=== PATIENT | male | born 1975 | race Caucasian/White ===

== ENCOUNTER 2017-06-29 22:20 | Emergency (ER) | payer SELFPAY ==
[2017-06-29] MEDS ORDERED: NA CHLORIDE 0.9% 1,000 ML ONE (22:34)
[2017-06-29] MEDS ORDERED: MAGNE/ALUM HYDROXD 30 ML UCUP ONE (22:34)
[2017-06-29] MEDS ORDERED: LIDOCAINE VISCOUS 2% SOLN 15 ML UDC ONE (22:34)
[2017-06-29] MEDS ORDERED: FAMOTIDINE 20 MG/2 ML VIAL IV ONE (22:34)
[2017-06-29 22:58] LABS: Absolute Lymphocytes (CBC) 2.9 K/uL (0.7-4.9); Absolute Monocytes 0.4 K/uL (0.1-1.3); Absolute Neutrophil 1.7 K/uL (1.8-8.0); Basophils % 0.6 % (0-1.3); Eosinophils % 6.5 % (0-4.4); Hematocrit 42.3 % (39.6-49.0); Lymphocytes % 54.1 % (15.3-44.8); MCH 32.1 pg (27.0-35.0); MCV 92.6 fL (80-100); MPV 7.5 fL (7.6-11.3); RBC Red Blood Cell Count 4.57 M/uL (4.33-5.43)
[2017-06-29 23:01] LABS: Protime INR 1.05
[2017-06-29 23:15] LABS: Glucose Level 81 mg/dL (65-120)
[2017-06-29 23:22] LABS: ALT/SGPT 39 IU/L (10-60); AST/SGOT 65 IU/L (10-42); Albumin 4.1 g/dL (3.2-5.5); Alkaline Phosphatase 85 IU/L (42-121); Bicarbonate 24 mEq/L (21-31); Bilirubin Direct 0.3 mg/dL (0-0.2); Bilirubin Total 1.4 mg/dL (0.3-1.2); Protein, Total 7.1 g/dL (6.0-8.3); Sodium Level 136 mEq/L (135-145)
[2017-06-29 23:23] LABS: BUN Blood Urea Nitrogen < 5 mg/dL (6-20); Magnesium 1.5 mg/dL (1.8-2.5)
[2017-06-29] MEDS ORDERED: ONDANSETRON 4 MG/2 ML VIAL ONE (23:46)
[2017-06-29] MEDS ORDERED: MAGNESIUM OXIDE 400 MG TAB ONE (23:46)
[2017-06-29] MEDS ORDERED: POTASSIUM 25 MEQ EFFERV TAB ONE (23:50)
--- NOTE | 2017-06-29 23:52 | ER ---
Nurse's Notes [facility] Name: Acosta Jung Age: 42 yrs Sex: Male : 1975 Arrival Date: 06/29/2017 Time: 22:21 Bed 24 Private MD: Diagnosis: Pain localized to upper abdomen Presentation: 06/29 22:25 Presenting complaint: Patient states: Pt. arrived from home by EMS, c/o CP "heartburn" rk2 type feeling. Pt. admits to ETOH tonight. Hx of heartburn. Pt. is a poor historian unable to supply much information regarding onset. Transition of care: patient was not received from another setting of care. Onset of symptoms was June 29, 2017. Care prior to arrival: Medication(s) given: zofran 4 mg, IV initiated. 20 GA, in the right antecubital area. 22:25 Method Of Arrival: EMS: [facility] rk2 22:25 Acuity: MARION 3 rk2 Triage Assessment: 22:25 General: Appears in no apparent distress. slender, unkempt, Behavior is calm, rk2 cooperative. 22:25 Pain: Complains of pain in chest. Neuro: Level of Consciousness is awake, obeys rk2 commands, Oriented to person, place, situation. Cardiovascular: Rhythm is sinus rhythm. Respiratory: Airway is patent Respiratory effort is even, unlabored, Respiratory pattern is regular, symmetrical. GI: Reports nausea. Derm: Skin is pink, warm \\T\\ dry. Musculoskeletal:. Historical: - Allergies: 22:29 No Known Allergies; rk2 - PMHx: 22:29 heartburn; rk2 - Immunization history:: Pneumococcal vaccine is not up to date, Flu vaccine is not up to date. - Social history:: Patient uses alcohol, Patient/guardian denies using street drugs, IV drugs, The patient lives with family, Smoking status: Patient uses tobacco products. Screenin:25 Abuse screen: Denies threats or abuse. rk2 22:25 Nutritional screening: No deficits noted. Tuberculosis screening: No symptoms or risk rk2 factors identified. Fall Risk IV access (20 points). Assessment: 06/30 00:00 Reassessment: Pt. resting in room \\T\\ this time... appears to be in no obvious distress. rk2 No needs voiced. Iv fluids infusing. 00:48 Reassessment: Reviewed DC instructions with pt... Pt. awaiting ride \\T\\ this time. rk2 03:00 Reassessment: pt appears to be sleeping, awaiting ride home. bb 05:40 Reassessment: Patient is alert, oriented x 3, equal unlabored respirations, skin bb warm/dry/pink. pt calling for ride home, ambulated with steady gait to exit. Vital Signs: 06/29 22:29 BP 113 / 88; Pulse 96; Resp 16; Temp 98.7; Pulse Ox 98% on R/A; rk2 23:51 BP 124 / 78; Pulse 89; Resp 17; Pulse Ox 98% on R/A; rk2 06/30 05:41 BP 129 / 81; Pulse 74; Resp 20 S; Temp 98.2(O); Pulse Ox 96% on R/A; Pain 0/10; bb ED Course: 06/29 22:21 Patient arrived in ED. rg2 22:25 Katherin Maldonado, RN is Primary Nurse. rk2 22:25 Patient has correct armband on for positive identification. Bed in low position. Call rk2 light in reach. Side rails up X2. radiation monitor on. Pulse ox on. 22:25 Arm band placed on. rk2 22:28 Triage completed. rk2 22:29 Mika Bain MD is Attending Physician. ma2 06/30 00:50 No provider procedures requiring assistance completed. rk2 05:34 IV discontinued, intact, bleeding controlled, No redness/swelling at site. Pressure bb dressing applied. Administered Medications: 06/29 22:51 Drug: NS 0.9% 1000 ml Route: IV; Rate: 1 bolus; Site: right antecubital; rk2 06/30 00:15 Follow up: Response: No adverse reaction; IV Status: Completed infusion rk2 06/29 22:51 Drug: Pepcid 20 mg Route: IVP; Site: right antecubital; rk2 06/30 00:47 Follow up: Response: No adverse reaction 2 06/29 22:51 Drug: GI Cocktail without - (Maalox Suspension 30 ml, Lidocaine Liquid 2 % 15 rk2 ml) Route: PO; 06/30 00:47 Follow up: Response: No adverse reaction; Pain is decreased rk2 06/29 23:54 Drug: Zofran 4 mg Route: IVP; Site: right antecubital; rk2 06/30 00:46 Follow up: Response: No adverse reaction 2 06/29 23:55 CANCELLED (med changed by provider): Potassium Chloride 40 mEq PO once rk2 23:55 Drug: Magnesium Oxide 400 mg Route: PO; rk2 06/30 00:46 Follow up: Response: No adverse reaction 2 06/29 23:58 Drug: Potassium Effervescent Tablet 50 mEq Route: PO; rk2 06/30 00:46 Follow up: Response: No adverse reaction 2 06/29 23:59 CANCELLED (Duplicate Order): Potassium Effervescent Tablet 25 mEq PO once; dissolve in rk2 4 ounces of water or juice Outcome: 23:51 Discharge ordered by . jewel 06/30 00:50 Discharged to home rk2 Condition: improved Discharge instructions given to patient, Prescriptions given X 1. 05:41 Patient left the ED. bb Signatures: Saida Purcell 2 Melissa He RN RN bb Mika Bain MD MD ma2 Kidder, Rhonda, RN RN rk2
--- NOTE | 2017-06-29 23:52 | EDPHYS ---
Physician Documentation [facility] Name: Acosta Jung Age: 42 yrs Sex: Male : 1975 Arrival Date: 06/29/2017 Time: 22:21 Bed 24 Private MD: ED Physician Mika Bain HPI: 06/29 22:52 This 42 yrs old Male presents to ER via EMS with complaints of epigas. ma2 22:52 This 42 yrs old Male presents to ER via EMS with complaints of epigastric abd pain. ma2 22:52 The patient presents with abdominal pain in the epigastric area. Onset: The ma2 symptoms/episode began/occurred suddenly, gradually, 1 hour(s) ago. The symptoms do not radiate. Associated signs and symptoms: Pertinent positives: nausea and vomiting. Associated signs and symptoms: Pertinent positives: Pertinent negatives: nausea and vomiting, vomiting, vomiting blood. Severity of pain: At its worst the pain was mild moderate in the emergency department the pain is unchanged. The patient has experienced similar episodes in the past. patient was drining alcohol heavily started to have epigastric pain x 1 hour . Historical: - Allergies: 22:29 No Known Allergies; rk2 - PMHx: 22:29 heartburn; rk2 - Immunization history:: Pneumococcal vaccine is not up to date, Flu vaccine is not up to date. - Social history:: Patient uses alcohol, Patient/guardian denies using street drugs, IV drugs, The patient lives with family, Smoking status: Patient uses tobacco products. ROS: 22:52 Cardiovascular: Negative for chest pain, palpitations, and edema, Respiratory: Negative ma2 for shortness of breath, cough, wheezing, and pleuritic chest pain, : Negative for injury, bleeding, discharge, and swelling, MS/Extremity: Negative for injury and deformity. 22:52 All other systems are negative. 22:52 Unable to obtain ROS due to intoxicated with alcohol. Exam: 22:52 ENT: Nares patent. No nasal discharge, no septal abnormalities noted. Tympanic ma2 membranes are normal and external auditory canals are clear. Oropharynx with no redness, swelling, or masses, exudates, or evidence of obstruction, uvula midline. Mucous membranes moist. Neck: Trachea midline, no thyromegaly or masses palpated, and no cervical lymphadenopathy. Supple, full range of motion without nuchal rigidity, or vertebral point tenderness. No Meningismus. Chest/axilla: Normal chest wall appearance and motion. Nontender with no deformity. No lesions are appreciated. Cardiovascular: Regular rate and rhythm with a normal S1 and S2. No gallops, murmurs, or rubs. Normal PMI, no JVD. No pulse deficits. Abdomen/GI: Soft, non-tender, with normal bowel sounds. No distension or tympany. No guarding or rebound. No evidence of tenderness throughout. 22:52 Constitutional: The patient appears alert, awake, smells of alcohol. Vital Signs: 22:29 BP 113 / 88; Pulse 96; Resp 16; Temp 98.7; Pulse Ox 98% on R/A; rk2 23:51 BP 124 / 78; Pulse 89; Resp 17; Pulse Ox 98% on R/A; rk2 06/30 05:41 BP 129 / 81; Pulse 74; Resp 20 S; Temp 98.2(O); Pulse Ox 96% on R/A; Pain 0/10; bb MDM: 06/29 22:29 Patient medically screened. ma2 22:52 Differential diagnosis: cholecystitis, gastritis, gastroesophageal reflux disease, GI ma2 Bleed, pancreatitis. 23:48 Data reviewed: vital signs, nurses notes, lab test result(s). Counseling: I had a ma2 detailed discussion with the patient and/or guardian regarding: the historical points, exam findings, and any diagnostic results supporting the discharge/admit diagnosis, the need for outpatient follow up. Medical screen evaluation completed. [facility] emergency medical condition absent. ED course: lab unremarkable patient is not sober enough to drive,he will call someone to come pick him up . 06/29 22:30 Order name: LFT's; Complete Time: 23:33 ma2 06/29 22:30 Order name: Basic Metabolic Panel; Complete Time: 23:33 wa2 06/29 22:30 Order name: BNP; Complete Time: 23:33 wa2 06/29 22:30 Order name: CBC with Diff; Complete Time: 23:33 wa2 06/29 22:30 Order name: Magnesium; Complete Time: 23:33 wa2 06/29 22:30 Order name: PT-INR; Complete Time: 23:33 ma2 06/29 22:30 Order name: Ptt, Activated; Complete Time: 23:33 ma06/29 22:30 Order name: Troponin (emerg Dept Use Only); Complete Time: 23:33 06/29 22:30 Order name: EKG; Complete Time: 22:31 06/29 22:30 Order name: Cardiac monitoring; Complete Time: 22:51 wa06/29 22:30 Order name: EKG - Nurse/Tech; Complete Time: 22:51 wa06/29 22:30 Order name: IV Saline Lock; Complete Time: 22:51 wa06/29 22:30 Order name: Labs collected and sent; Complete Time: 22:52 wa06/29 22:30 Order name: O2 Per Protocol; Complete Time: 22:52 wa06/29 22:30 Order name: O2 Sat Monitoring; Complete Time: 22:52 ma2 Administered Medications: 22:51 Drug: NS 0.9% 1000 ml Route: IV; Rate: 1 bolus; Site: right antecubital; [facility] 06/30 00:15 Follow up: Response: No adverse reaction; IV Status: Completed infusion 06/29 22:51 Drug: Pepcid 20 mg Route: IVP; Site: right antecubital; 06/30 00:47 Follow up: Response: No adverse reaction 06/29 22:51 Drug: GI Cocktail without - (Maalox Suspension 30 ml, Lidocaine Liquid 2 % 15 rk2 ml) Route: PO; 06/30 00:47 Follow up: Response: No adverse reaction; Pain is decreased 06/29 23:54 Drug: Zofran 4 mg Route: IVP; Site: right antecubital; 06/30 00:46 Follow up: Response: No adverse reaction 06/29 23:55 CANCELLED (med changed by provider): Potassium Chloride 40 mEq PO once rk 23:55 Drug: Magnesium Oxide 400 mg Route: PO; 06/30 00:46 Follow up: Response: No adverse reaction 06/29 23:58 Drug: Potassium Effervescent Tablet 50 mEq Route: PO; 06/30 00:46 Follow up: Response: No adverse reaction 06/29 23:59 CANCELLED (Duplicate Order): Potassium Effervescent Tablet 25 mEq PO once; dissolve in rk2 4 ounces of water or juice Disposition: 06/29/17 23:51 Discharged to Home. Impression: Pain localized to upper abdomen. - Condition is Stable. - Discharge Instructions: Alcohol Abuse and Nutrition. - Prescriptions for Pepcid 20 mg Oral Tablet - take 1 tablet by ORAL route once daily for 10 days; 10 tablet. - Medication Reconciliation Form, Thank You Letter, Antibiotic Education, Prescription Opioid Use form. - Follow up: Private Physician; When: Tomorrow; Reason: Continuance of care. - Problem is new. - Symptoms have improved. Signatures: Dispatcher [employer] EDMS Melissa He RN RN bb Mika Bain MD MD ma2 Kidder, Rhonda, RN RN rk2 Corrections: (The following items were deleted from the chart) 22:48 22:31 Chest Single View+RAD.RAD.BRZ ordered. EDMO EDMS 23:55 23:35 Potassium Chloride Liquid 40 mEq PO once ordered. [facility] rk 23:59 23:57 Potassium Effervescent Tablet 25 mEq PO once; dissolve in 4 ounces of water or rk2 juice ordered. rk2 06/30 03:16 06/29 22:30 Urine Dipstick-Ancillary ordered. waKatiuska fleming
--- NOTE | 2017-07-01 22:38 | EKG ---
Test Date: 2017-06-29 Test Time: 22:52:12 Maintenance Leader: AYLA MEASUREMENT RESULTS: Intervals: Rate: 75 WY: 156 QRSD: 94 QT: 402 QTc: 448 [place]: P: 61 WY: 156 QRS: 56 T: 52 INTERPRETIVE STATEMENTS: Sinus rhythm with marked sinus arrhythmia Otherwise normal ECG No previous ECG available for comparison Electronically Signed On 07-01-17 22:37:59 CDT by Damien Reynolds
== END 2017-06-30 05:41 | disposition home or self-care (01) ==
LOC: ER 22:20
DX: R10.13 Epigastric pain (principal); Z72.0 Tobacco use
CPT/HCPCS: 36415; 80048; 80076; 83735; 83880; 84484; 85025; 85610; 85730; 93005; 96361; 96374; 96375; 99284; J2405; J7030

== ENCOUNTER 2017-07-07 18:15 | Emergency (ER) | payer SELFPAY ==
--- NOTE | 2017-07-07 18:52 | RAD REPORT ---
EXAM DESCRIPTION: CT - Head Brain Wo Cont - 07/07/2017 6:42 pm CLINICAL HISTORY: Confusion. Syncope COMPARISON: July 2016 TECHNIQUE: Computed axial tomography of the head was obtained. IV contrast was not requested. All CT scans are performed using dose optimization technique as appropriate and may include automated exposure control or mA/KV adjustment according to patient size. FINDINGS: An intracranial bleed is not seen . The ventricles are normal in caliber. No extra-axial fluid collection is noted. Moderate low-density areas within periventricular, deep and subcortical white matter likely represent ischemic changes secondary to small vessel disease. Fluid within the sinuses/ mastoids is not seen. IMPRESSION: No acute intracranial abnormality is seen. If patient's symptoms persist MRI of the bra in would be recommended.
[2017-07-07] MEDS ORDERED: NA CHLORIDE 0.9% 1,000 ML ONE ×2 (19:08→21:45)
[2017-07-07] MEDS ORDERED: LORazepam 2 MG/ML VIAL ONE (19:08)
--- NOTE | 2017-07-07 19:22 | RAD REPORT ---
EXAM DESCRIPTION: Lio Single View07/07/2017 6:58 pm CLINICAL HISTORY: Chest pain COMPARISON: none FINDINGS: Artifact overlies the chest obscuring detail. The lungs appear grossly clear. The heart is normal size
[2017-07-07 19:24] LABS: Absolute Lymphocytes (CBC) 1.3 K/uL (0.7-4.9); Absolute Monocytes 0.5 K/uL (0.1-1.3); Absolute Neutrophil 2.2 K/uL (1.8-8.0); Basophils % 0.8 % (0-1.3); Hematocrit 39.3 % (39.6-49.0); Lymphocytes % 32.2 % (15.3-44.8); MCH 32.7 pg (27.0-35.0); MCV 94.2 fL (80-100); MPV 7.5 fL (7.6-11.3); Monocytes % 11.5 % (3.3-12.3); RBC Red Blood Cell Count 4.17 M/uL (4.33-5.43)
[2017-07-07 19:27] LABS: Protime INR 1.02
[2017-07-07 19:34] LABS: Glucose Level 64 mg/dL (65-120)
[2017-07-07 19:42] LABS: ALT/SGPT 54 IU/L (10-60); AST/SGOT 106 IU/L (10-42); Albumin 4.1 g/dL (3.2-5.5); Alcohol Serum/Plasma 321 mg/dl; Alkaline Phosphatase 95 IU/L (42-121); BUN Blood Urea Nitrogen 6 mg/dL (6-20); Bicarbonate 28 mEq/L (21-31); Bilirubin Direct 0.5 mg/dL (0-0.2); Creatine Phosphokinase 143 IU/L (22-269); Potassium 3.4 mEq/L (3.6-5.0); Protein, Total 7.1 g/dL (6.0-8.3); Salicylates Level < 4.0 mg/dl (<30); Sodium Level 138 mEq/L (135-145)
[2017-07-07 19:43] LABS: Magnesium 1.4 mg/dL (1.8-2.5)
[2017-07-07 19:44] LABS: CKMB Creatine Kinase MB 1.4 ng/ml (0.3-4.0)
[2017-07-07] MEDS ORDERED: MAGNESIUM SULFATE 1 gm IVPB 1 GM/100 ML BAG IV ONE (19:55)
--- NOTE | 2017-07-07 20:52 | EDPHYS ---
Physician Documentation [facility] Name: Acosta Jung Age: 42 yrs Sex: Male : 1975 Arrival Date: 07/07/2017 Time: 18:16 Bed 14 Private MD: ED Physician Isidro Long HPI: 07/07 18:20 This 42 yrs old Male presents to ER via EMS with complaints of Altered Mental kav Status. 18:30 The patient presents with decreased mental status, decreased responsiveness, kav disorientation. Onset: The symptoms/episode began/occurred acutely, just prior to arrival. Possible causes: drug use, alcohol, has a history of chronic alcohol abuse. Associated signs and symptoms: Pertinent positives: responds to painful stimuli only momentarily then back to being unresponsive. Associated signs and symptoms: Pertinent negatives: combativeness, seizure. Current symptoms: In the emergency department the patient's symptoms are unchanged from the initial presentation, despite EMS interventions. Patient's baseline: Neuro: alert and fully oriented, Motor: no deficits, Ambulation: walks without assistance, Speech: normal, The patient has a previous history of chronic alcohol use. Unable to obtain HPI due to altered mental status, obtunded state. . Historical: - Allergies: 18:21 No Known Allergies; ph - Home Meds: 18:21 Unable to obtain [Active]; ph - PMHx: 18:21 GERD; ph - PSHx: 18:21 Unable to obtain; ph - Immunization history:: Adult Immunizations unknown. - Social history:: Smoking status: unknown. - Family history:: not pertinent. - Hospitalizations: : No recent hospitalization is reported. - History obtained from: EMS, old record. ROS: 18:33 Unable to obtain ROS due to altered mental status, obtunded state. kav 20:52 Constitutional: Negative for fever, chills, and weight loss, Eyes: Negative for injury, kav pain, redness, and discharge, ENT: Negative for injury, pain, and discharge, Neck: Negative for injury, pain, and swelling, Cardiovascular: Negative for chest pain, palpitations, and edema, Respiratory: Negative for shortness of breath, cough, wheezing, and pleuritic chest pain, Abdomen/GI: Negative for abdominal pain, nausea, vomiting, diarrhea, and constipation, Back: Negative for injury and pain, : Negative for injury, bleeding, discharge, and swelling, MS/Extremity: Negative for injury and deformity, Skin: Negative for injury, rash, and discoloration, Neuro: Negative for headache, weakness, numbness, tingling, and seizure, Psych: Negative for depression, anxiety, suicide ideation, homicidal ideation, and hallucinations, Allergy/Immunology: Negative for hives, rash, and allergies, Endocrine: Negative for neck swelling, polydipsia, polyuria, polyphagia, and marked weight changes, Hematologic/Lymphatic: Negative for swollen nodes, abnormal bleeding, and unusual bruising. Exam: 18:33 Head/Face: Normocephalic, atraumatic. Eyes: Pupils equal round and reactive to light, kav extra-ocular motions intact. Lids and lashes normal. Conjunctiva and sclera are non-icteric and not injected. Cornea within normal limits. Periorbital areas with no swelling, redness, or edema. ENT: Nares patent. No nasal discharge, no septal abnormalities noted. Tympanic membranes are normal and external auditory canals are clear. Oropharynx with no redness, swelling, or masses, exudates, or evidence of obstruction, uvula midline. Mucous membranes moist. Neck: Trachea midline, no thyromegaly or masses palpated, and no cervical lymphadenopathy. Supple, full range of motion without nuchal rigidity, or vertebral point tenderness. No Meningismus. Chest/axilla: Normal chest wall appearance and motion. Nontender with no deformity. No lesions are appreciated. Cardiovascular: Regular rate and rhythm with a normal S1 and S2. No gallops, murmurs, or rubs. Normal PMI, no JVD. No pulse deficits. Respiratory: Lungs have equal breath sounds bilaterally, clear to auscultation and percussion. No rales, rhonchi or wheezes noted. No increased work of breathing, no retractions or nasal flaring. Abdomen/GI: Soft, non-tender, with normal bowel sounds. No distension or tympany. No guarding or rebound. No evidence of tenderness throughout. Back: No spinal tenderness. No costovertebral tenderness. Full range of motion. Skin: Warm, dry with normal turgor. Normal color with no rashes, no lesions, and no evidence of cellulitis. MS/ Extremity: Pulses equal, no cyanosis. Neurovascular intact. Full, normal range of motion. Psych: Awake, alert, with orientation to person, place and time. Behavior, mood, and affect are within normal limits. 18:33 Constitutional: The patient appears smells of alcohol, ETOH. 18:33 Neuro: Orientation: unable to test, obtunded, Mentation: responsive intermittently to painful stimuli, responsive to pain, Cranial nerves: Gag reflex present. 19:53 ECG was reviewed by the Attending Physician. nsr 81 bpm, prolonged qt interval 418 ms kav 20:52 Constitutional: This is a well developed, well nourished patient who is awake, alert, kav and in no acute distress. Neuro: Awake and alert, GCS 15, oriented to person, place, time, and situation. Cranial nerves II-XII grossly intact. Motor strength 5/5 in all extremities. Sensory grossly intact. Cerebellar exam normal. Normal gait. Vital Signs: 18:19 BP 111 / 74; Pulse 100; Resp 14; Temp 98.8(TE); Pulse Ox 97% on R/A; ph 19:38 BP 109 / 74; Pulse 100; Resp 20; Pulse Ox 98% on R/A; tl2 21:03 BP 111 / 97; Pulse 99; Resp 20; Pulse Ox 98% on R/A; tl2 MDM: 18:17 Patient medically screened. kav 20:49 Data reviewed: vital signs, nurses notes, lab test result(s), EKG, radiologic studies. kav ED course: patient is much improved and is alert and oriented and is "...ready to go home". 07/07 18:22 Order name: Basic Metabolic Panel; Complete Time: 19:50 kav 07/07 18:22 Order name: BNP; Complete Time: 20:48 kav 07/07 18:22 Order name: CBC with Diff; Complete Time: 19:50 kav 07/07 18:22 Order name: Ckmb; Complete Time: 19:50 kav 07/07 18:22 Order name: CPK; Complete Time: 19:50 kav 07/07 18:22 Order name: LFT's; Complete Time: 19:50 kav 07/07 18:22 Order name: Magnesium; Complete Time: 19:50 kav 07/07 18:22 Order name: PT-INR; Complete Time: 19:50 kav 07/07 18:22 Order name: Ptt, Activated; Complete Time: 19:50 kav 07/07 18:22 Order name: Troponin (emerg Dept Use Only); Complete Time: 19:50 kav 07/07 18:24 Order name: Urine Drug Screen kav 07/07 18:22 Order name: XRAY Chest (1 view); Complete Time: 19:50 kav 07/07 18:22 Order name: EKG; Complete Time: 18:22 kav 07/07 18:22 Order name: Cardiac monitoring; Complete Time: 19:12 kav 07/07 18:22 Order name: EKG - Nurse/Tech; Complete Time: 19:34 kav 07/07 18:22 Order name: IV Saline Lock; Complete Time: 19:12 kav 07/07 18:22 Order name: Labs collected and sent; Complete Time: 19:12 kav 07/07 18:22 Order name: CT Head Brain wo Cont; Complete Time: 18:56 kav 07/07 18:57 Interpretation: No acute disease. kav 07/07 19:21 Order name: Acetaminophen Level; Complete Time: 19:50 EDMS 07/07 19:21 Order name: Alcohol Serum/Plasma; Complete Time: 19:50 EDMS 07/07 19:21 Order name: Salicylates Level; Complete Time: 19:50 EDMS 07/07 22:57 Order name: Urine Dipstick--Ancillary (enter results) em1 07/07 18:22 Order name: O2 Per Protocol; Complete Time: 19:13 kav 07/07 18:22 Order name: O2 Sat Monitoring; Complete Time: 19:13 kav 07/07 18:22 Order name: Urine Dipstick-Ancillary (obtain specimen); Complete Time: 22:55 kav Administered Medications: 19:12 Drug: Ativan 1 mg Route: IVP; Site: right antecubital; ph 19:40 Follow up: Response: No adverse reaction; Marked relief of symptoms tl2 19:14 Drug: NS 0.9% 1000 ml Route: IV; Rate: 1 bolus; Site: right antecubital; tl2 20:30 Follow up: IV Status: Completed infusion; IV Intake: 1000ml tl2 19:58 Drug: Magnesium Sulfate 1 grams Route: IVPB; Infused Over: 1 hrs; Site: right tl2 antecubital; 21:48 Follow up: Response: No adverse reaction tl2 23:20 Follow up: IV Status: Completed infusion tl2 21:02 Drug: Ativan 1 mg Route: IVP; Site: right antecubital; tl2 23:20 Follow up: Response: No adverse reaction; Marked relief of symptoms tl2 21:48 Drug: NS 0.9% 1000 ml Route: IV; Rate: 1000 ml; Site: right antecubital; tl2 23:20 Follow up: IV Status: Completed infusion tl2 Disposition: 07/07/17 20:51 Discharged to Home. Impression: Alcohol abuse with intoxication, unspecified, Hypomagnesemia, Dehydration. - Condition is Stable. - Discharge Instructions: Alcohol Intoxication, Alcohol Use Disorder, Hypomagnesemia, Malnutrition, Alcohol Abuse and Nutrition, Dehydration, Adult, [id number], Rehydration, Adult. - Medication Reconciliation Form, Thank You Letter, Antibiotic Education, Prescription Opioid Use form. - Follow up: Private Physician; When: 1 - 2 days; Reason: Recheck today's complaints, Continuance of care, Re-evaluation by your physician. - Problem is new. - Symptoms have improved. Signatures: Dispatcher [employer] EDMS Shyann Adam, IMPROVEMENT DIRECTOR IMPROVEMENT DIRECTOR Brinda Dixon RN RN Liana Friedman RN RN tl2 Corrections: (The following items were deleted from the chart) 19:20 18:24 ACETAMINOPHEN+C.LAB.BRZ ordered. EDMS EDMS 19:20 18:24 ETHANOL+C.LAB.BRZ ordered. EDMS EDMS 19:20 18:24 SALICYLATE+C.LAB.BRZ ordered. EDMS EDMS
--- NOTE | 2017-07-07 20:52 | ER ---
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 Transition of care: patient was not received from another setting of care. Onset of symptoms was July 07, 2017. Initial Sepsis Screen: Does the patient meet any 2 criteria? No. Patient's initial sepsis screen is negative. Does the patient have a suspected source of infection? No. Patient's initial sepsis screen is negative. Care prior to arrival: None. 18:16 Method Of Arrival: EMS: [facility] ph 18:16 Acuity: MARION 2 ph Historical: - Allergies: 18:21 No Known Allergies; ph - Home Meds: 18:21 Unable to obtain [Active]; ph - PMHx: 18:21 GERD; ph - PSHx: 18:21 Unable to obtain; ph - Immunization history:: Adult Immunizations unknown. - Social history:: Smoking status: unknown. - Family history:: not pertinent. - Hospitalizations: : No recent hospitalization is reported. - History obtained from: EMS, old record. Screenin:20 Abuse screen: Denies threats or abuse. Denies injuries from another. Nutritional ph screening: No deficits noted. Tuberculosis screening: No symptoms or risk factors identified. 19:00 Fall Risk IV access (20 points). Mental Status- Overestimates/Forgets Limitations (15 tl2 pts.). Assessment: 19:38 General: Appears in no apparent distress. comfortable, Behavior is anxious, restless, tl2 uncooperative, Smells of alcohol. Pain: Denies pain. Neuro: Level of Consciousness is awake, confused, Oriented to person, place. Cardiovascular: Denies chest pain. Respiratory: Airway is patent Respiratory effort is even, unlabored, Respiratory pattern is regular, symmetrical. GI: No signs and/or symptoms were reported involving the gastrointestinal system. : No signs and/or symptoms were reported regarding the genitourinary system. Derm: Skin is pink, warm \T\ dry. 19:52 Reassessment: Pt appears more coherent after ativan administration. Pt can answer tl2 questions and follow a conversation. Pt was able to give me his address and told me that he was drinking a lot today. Denies drugs. 20:19 Reassessment: crackers and juice given to patient. Pt continuing to become more awake tl2 and alert. Possible discharge after magnesium infusion. 21:03 Reassessment: Pt started having tremors and was only able to tell me his name. PA tl2 notified, new orders see MAY. 21:48 Reassessment: Pt states he does not remember our conversation from earlier. Tremors tl2 have stopped but pt appears drowsy and wants to sleep. PA ordered another bolus and we will continue to observe pt's behavior. 22:42 Reassessment: Pt appears more lucid after ativan administration and is ambulatory to tl2 restroom. PA approved for discharge. 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 23:15 Reassessment: Pt verbalized understanding of discharge instructions and safety tl2 practices. Vital Signs: 18:19 BP 111 / 74; Pulse 100; Resp 14; Temp 98.8(TE); Pulse Ox 97% on R/A; ph 19:38 BP 109 / 74; Pulse 100; Resp 20; Pulse Ox 98% on R/A; tl2 21:03 BP 111 / 97; Pulse 99; Resp 20; Pulse Ox 98% on R/A; tl2 ED Course: 18:16 Patient arrived in ED. ph 18:17 Shyann Adam FNP is PHCP. kav 18:17 Isidro Long MD is Attending Physician. kav 18:19 Triage completed. ph 18:27 Arm band placed on. ph 18:29 Brinda Gomes, RN is Primary Nurse. ph 18:42 CT Head Brain wo Cont In Process Unspecified. EDMS 18:58 XRAY Chest (1 view) In Process Unspecified. EDMS 19:00 No provider procedures requiring assistance completed. tl2 19:37 Inserted saline lock: 20 gauge in right antecubital area, using aseptic technique. tl2 Blood collected. placed by tech. oVnda 19:38 Patient has correct armband on for positive identification. Bed in low position. Call tl2 light in reach. Side rails up X2. 19:45 Notified Nurse Practitioner and/or Physician Training Officer of a critical lab result(s), Mag bs1 1.4, Notified SOLAR SALES AMBASSADOR Jair. 23:16 IV discontinued, intact, bleeding controlled, No redness/swelling at site. Pressure tl2 dressing applied. Administered Medications: 19:12 Drug: Ativan 1 mg Route: IVP; Site: right antecubital; ph 19:40 Follow up: Response: No adverse reaction; Marked relief of symptoms tl2 19:14 Drug: NS 0.9% 1000 ml Route: IV; Rate: 1 bolus; Site: right antecubital; tl2 20:30 Follow up: IV Status: Completed infusion; IV Intake: 1000ml tl2 19:58 Drug: Magnesium Sulfate 1 grams Route: IVPB; Infused Over: 1 hrs; Site: right tl2 antecubital; 21:48 Follow up: Response: No adverse reaction tl2 23:20 Follow up: IV Status: Completed infusion tl2 21:02 Drug: Ativan 1 mg Route: IVP; Site: right antecubital; tl2 23:20 Follow up: Response: No adverse reaction; Marked relief of symptoms tl2 21:48 Drug: NS 0.9% 1000 ml Route: IV; Rate: 1000 ml; Site: right antecubital; tl2 23:20 Follow up: IV Status: Completed infusion tl2 Intake: 20:30 IV: 1000ml; Total: 1000ml. tl2 Outcome: 20:51 Discharge ordered by MD. mccarty 23:16 Discharged to home ambulatory, via taxi tl2 23:16 Condition: stable 23:16 Discharge instructions given to patient, Instructed on discharge instructions, safety practices, Demonstrated understanding of instructions. 23:22 Patient left the ED. tl2 Signatures: Dispatcher [employer] EDShyann Raygoza, FLAGGER FLAGGER Brinda Dixon RN RN Liana Friedman RN RN tl2 Janessa Shell RN RN bs1 Corrections: (The following items were deleted from the chart) 23:16 22:42 Reassessment: Pt appears more lucid after ativan administration. PA approved for tl2 discharge. 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
[2017-07-07 23:03] LABS: Phencyclidine ND; THC Cannibis ND
[2017-07-07 23:04] LABS: Urine Blood NEGATIVE (NEG); Urine Glucose NEGATIVE (NEG); Urine Protein TRACE (NEG); Urine Specific Gravity 1.015 (1.005-1.030)
[2017-07-07 23:09] LABS: Barbiturates NEGATIVE; Benzodiazepines NEGATIVE; Cocaine NEGATIVE; METHAMPHETAM NEGATIVE; Opiates NEGATIVE
--- NOTE | 2017-07-08 06:12 | EKG ---
Test Date: 2017-07-08 Test Time: 00:51:46 Winch Stripper: FRANNY MEASUREMENT RESULTS: Intervals: Rate: 88 DE: 172 QRSD: 92 QT: 366 QTc: 442 [place]: P: 77 DE: 172 QRS: 88 T: 30 INTERPRETIVE STATEMENTS: Normal sinus rhythm Septal infarct, age undetermined Abnormal ECG Compared to ECG 06/29/2017 22:52:12 Myocardial infarct finding now present Sinus arrhythmia no longer present Electronically Signed On 07-08-17 06:11:53 CDT by Damien Reynolds
== END 2017-07-07 23:22 | disposition home or self-care (01) ==
LOC: ER 18:15
DX: F10.129 Alcohol abuse with intoxication, unspecified (principal); E83.42 Hypomagnesemia; E86.0 Dehydration
CPT/HCPCS: 36415; 70450; 71045; 80048; 80076; 80307; 80320; 80329; 81003; 82550; 82553; 83735; 83880; 84484; 85025; 85610; 85730; 93005; 96361; 96365; 96366; 96375; 99284; J3475; J7030

== ENCOUNTER 2017-07-08 00:22 | Emergency (ER) | payer SELFPAY ==
--- NOTE | 2017-07-08 04:14 | ER ---
Nurse's Notes [facility] Name: Acosta Jung Age: 42 yrs Sex: Male : 1975 Arrival Date: 07/08/2017 Time: 00:30 Bed 7 Private MD: Diagnosis: Chest pain, unspecified Presentation: 07/08 00:31 Presenting complaint: EMS states: "Patient was discharge from the hospital few hours ao ago. Patient called because he was having chest pain. 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 Transition of care: patient was not received from another setting of care. Onset of symptoms was July 07, 2017 at 23:00. Initial Sepsis Screen: Does the patient meet any 2 criteria? Altered Mental Status. HR > 90 bpm. Yes Does the patient have a suspected source of infection? No. Patient's initial sepsis screen is negative. Care prior to arrival: IV initiated. 20 GA, in the right forearm, NS about 200ml. 00:31 Method Of Arrival: EMS: [facility] ao 00:31 Acuity: MARION 3 ao Triage Assessment: 00:39 General: Appears in no apparent distress. comfortable, Behavior is drowsy, restless, ao uncooperative, Smells of alcohol. Pain: Denies pain. EENT: No signs and/or symptoms were reported regarding the EENT system. Neuro: Level of Consciousness is listless, Oriented to person, Moves all extremities. Cardiovascular: Heart tones S1 S2 Capillary refill < 3 seconds Patient's skin is warm and dry. Respiratory: Airway is patent Respiratory effort is even, unlabored, Respiratory pattern is regular, symmetrical. GI: Abdomen is non-distended. : No signs and/or symptoms were reported regarding the genitourinary system. Derm: Skin is pink, warm \\T\\ dry. Skin temperature is warm. Musculoskeletal: No signs and/or symptoms reported regarding the musculoskeletal system. Historical: - Allergies: 00:37 No Known Allergies; ao - Home Meds: 00:37 Unable to obtain [Active]; ao - PMHx: 00:37 GERD; Heartburn; Alcoholism; ao - PSHx: 00:37 Unable to obtain; ao - Immunization history:: Adult Immunizations unknown. - Social history:: Smoking status: unknown Patient/guardian denies using alcohol, Smoking status: Patient uses alcohol, Patient/guardian denies using alcohol, street drugs, The patient lives alone. Screenin:38 Abuse screen: Denies threats or abuse. Denies injuries from another. Nutritional ao screening: No deficits noted. Tuberculosis screening: No symptoms or risk factors identified. Fall Risk Secondary diagnosis (15 points) AMS. IV access (20 points). Assessment: 00:42 General: Appears in no apparent distress. Smells of alcohol, See triage notes for full ao assessment. Pain: Pain does not radiate. Pain began 1 hour ago. 01:33 Reassessment: Patient appears in no apparent distress at this time. No changes from ao previously documented assessment. Patient and/or family updated on plan of care and expected duration. Pain level reassessed. Patient sleeps with no SS of distress. 02:03 Reassessment: Dr Bain stopped by to check on patient and stated that will keep the ao patient until he sober up in the morning to DC. 02:19 Reassessment: Patient appears in no apparent distress at this time. Patient sleeping ao with no SS of distress. Patient VS are being monitored. 03:34 Reassessment: Patient appears in no apparent distress at this time. Patient and/or ao family updated on plan of care and expected duration. Pain level reassessed. Patient is sleeping and shows no SS distress. 04:26 Reassessment: Patient appears in no apparent distress at this time. No changes from ao previously documented assessment. Patient sleeping with no SS of distress. 05:40 Reassessment: Patient appears in no apparent distress at this time. Patient and/or ao family updated on plan of care and expected duration. Pain level reassessed. Provide with orange juice and crackers as requested by patient. Patient to be discharge. Vital Signs: 00:35 BP 114 / 92; Pulse 94; Resp 16; Temp 98.5(O); Pulse Ox 93% on R/A; Pain 0/10; ao 01:33 BP 117 / 75; Pulse 87; Resp 14; Pulse Ox 98% on R/A; Pain 0/10; ao 02:19 BP 120 / 82; Pulse 91; Resp 22; Pulse Ox 97% on R/A; Pain 0/10; ao 03:32 BP 124 / 85; Pulse 85; Resp 16; Pulse Ox 97% on R/A; Pain 0/10; ao 04:26 BP 127 / 89; Pulse 107; Resp 24; Pulse Ox 99% on R/A; Pain 0/10; ao 05:40 BP 128 / 88; Pulse 97; Resp 16; Pulse Ox 98% on R/A; Pain 0/10; ao ED Course: 00:30 Patient arrived in ED. ao 00:34 Mika Bain MD is Attending Physician. ma2 00:35 Triage completed. ao 00:35 Arm band placed on right wrist. Patient placed in an exam room, on a stretcher, on ao pulse oximetry, Patient notified of wait time. 00:41 Patient has correct armband on for positive identification. Pulse ox on. NIBP on. ao 00:42 Patient maintains SpO2 saturation greater than 95% on room air. ao 00:45 Jed Rico RN is Primary Nurse. ao 00:59 Maintain EMS IV. Dressing intact. Good blood return noted. Site clean \\T\\ dry. Gauge \\T\\ ao site: 20 G RA. 01:00 EKG done, by ED staff, reviewed by Mika Bain MD. ao 06:48 No provider procedures requiring assistance completed. IV discontinued, intact, ao bleeding controlled, No redness/swelling at site. Pressure dressing applied. Administered Medications: No medications were administered Outcome: 04:14 Discharge ordered by . ma2 06:49 Discharged to home via wheelchair. ao 06:49 Condition: stable 06:49 Discharge instructions given to patient, Instructed on discharge instructions, follow up and referral plans. Demonstrated understanding of instructions, follow-up care, medications. 06:50 Patient left the ED. ao Signatures: Jed Rico RN RN ao Alzahri, Mohammad, MD MD ma2 Corrections: (The following items were deleted from the chart) 01:06 00:31 Initial Sepsis Screen: Does the patient meet any 2 criteria? Altered Mental ao Status. HR > 90 bpm. Yes Does the patient have a suspected source of infection? No. Patient's initial sepsis screen is negative. ao 02:11 00:39 General: Appears in no apparent distress. comfortable, Behavior is drowsy, ao restless, uncooperative, ao 04:29 04:26 BP 121 / 56; Pulse 123bpm; Resp 16bpm; Pulse Ox 99% RA; Pain 0/10; ao ao
--- NOTE | 2017-07-08 04:14 | EDPHYS ---
Physician Documentation [facility] Name: Acosta Jung Age: 42 yrs Sex: Male : 1975 Arrival Date: 07/08/2017 Time: 00:30 Bed 7 Private MD: ED Physician Mika Bain HPI: 07/08 02:04 This 42 yrs old Male presents to ER via EMS with complaints of Chest Pain. ma2 02:04 The patient or guardian reports chest pain that is located primarily in the anterior ma2 chest wall. Onset: gradually, 1 week(s) ago. Associated signs and symptoms: Pertinent negatives: None. abdominal pain, cough. Severity of pain: At its worst the pain was moderate today. Historical: - Allergies: 00:37 No Known Allergies; ao - Home Meds: 00:37 Unable to obtain [Active]; ao - PMHx: 00:37 GERD; Heartburn; Alcoholism; ao - PSHx: 00:37 Unable to obtain; ao - Immunization history:: Adult Immunizations unknown. - Social history:: Smoking status: unknown Patient/guardian denies using alcohol, Smoking status: Patient uses alcohol, Patient/guardian denies using alcohol, street drugs, The patient lives alone. ROS: 02:20 Unable to obtain ROS due to patient being uncooperative, intoxicated with alcohol . ma2 06:26 Hematologic/Lymphatic: Negative for swollen nodes, abnormal bleeding, and unusual ma2 bruising. Exam: 02:20 Head/Face: Normocephalic, atraumatic. Eyes: Pupils equal round and reactive to light, ma2 extra-ocular motions intact. Lids and lashes normal. Conjunctiva and sclera are non-icteric and not injected. Cornea within normal limits. Periorbital areas with no swelling, redness, or edema. ENT: Nares patent. No nasal discharge, no septal abnormalities noted. Tympanic membranes are normal and external auditory canals are clear. Oropharynx with no redness, swelling, or masses, exudates, or evidence of obstruction, uvula midline. Mucous membranes moist. Neck: Trachea midline, no thyromegaly or masses palpated, and no cervical lymphadenopathy. Supple, full range of motion without nuchal rigidity, or vertebral point tenderness. No Meningismus. Chest/axilla: Normal chest wall appearance and motion. Nontender with no deformity. No lesions are appreciated. Cardiovascular: Regular rate and rhythm with a normal S1 and S2. No gallops, murmurs, or rubs. Normal PMI, no JVD. No pulse deficits. Respiratory: Lungs have equal breath sounds bilaterally, clear to auscultation and percussion. No rales, rhonchi or wheezes noted. No increased work of breathing, no retractions or nasal flaring. 02:20 Constitutional: The patient appears smells of alcohol, ETOH. Vital Signs: 00:35 BP 114 / 92; Pulse 94; Resp 16; Temp 98.5(O); Pulse Ox 93% on R/A; Pain 0/10; ao 01:33 BP 117 / 75; Pulse 87; Resp 14; Pulse Ox 98% on R/A; Pain 0/10; ao 02:19 BP 120 / 82; Pulse 91; Resp 22; Pulse Ox 97% on R/A; Pain 0/10; ao 03:32 BP 124 / 85; Pulse 85; Resp 16; Pulse Ox 97% on R/A; Pain 0/10; ao 04:26 BP 127 / 89; Pulse 107; Resp 24; Pulse Ox 99% on R/A; Pain 0/10; ao 05:40 BP 128 / 88; Pulse 97; Resp 16; Pulse Ox 98% on R/A; Pain 0/10; ao MDM: 00:36 Patient medically screened. [facility] 02:20 Differential diagnosis: alcohol intoxication unlikely acs ND or aortic dissection. ma2 HEART Score: History: Slightly Suspicious (0), Total Score =. The patient's deep vein thrombosis risk score was calculated as follows: Total Score: 0. This patient was found to be at low risk for a deep vein thrombosis by using the Well's assessment criteria. The patient's pulmonary embolism risk score was calculated as follows: Total Score: 0-2 points. This patient was found to be at low risk for a pulmonary embolism by using the Well's assessment criteria. LIDYA Risk Score: TOTAL SCORE = 0. Data reviewed: vital signs, nurses notes, EMS record. Counseling: I had a detailed discussion with the patient and/or guardian regarding: the historical points, exam findings, and any diagnostic results supporting the discharge/admit diagnosis, the presence of at least one elevated blood pressure reading (>120/80) during this emergency department visit, the need for outpatient follow up. 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 . ED course: i saw him last week with the same symptom and workup was unremarkable. 07/08 00:38 Order name: Troponin I [facility] 07/08 00:38 Order name: Troponin I; Complete Time: 02:35 EDMN 07/08 00:36 Order name: EKG; Complete Time: 00:36 [facility] 07/08 01:00 Order name: EKG - Nurse/Tech; Complete Time: 01:01 ao Administered Medications: No medications were administered Disposition: 07/08/17 04:14 Discharged to Home. Impression: Chest pain, unspecified. - Condition is Stable. - Medication Reconciliation Form, Thank You Letter, Antibiotic Education, Prescription Opioid Use form. - Follow up: Private Physician; When: Tomorrow; Reason: Continuance of care. - Problem is new. - Symptoms are unchanged. Signatures: Dispatcher [employer] EDJed Andino, RN Mika Silverman MD MD ma2
--- NOTE | 2017-07-08 06:13 | EKG ---
Test Date: 2017-07-07 Test Time: 19:35:17 Merchandise Executive: HAZEL MEASUREMENT RESULTS: Intervals: Rate: 81 NC: 176 QRSD: 102 QT: 418 QTc: 485 [place]: P: 55 NC: 176 QRS: 48 T: 39 INTERPRETIVE STATEMENTS: Normal sinus rhythm with sinus arrhythmia Prolonged QT Abnormal ECG Compared to ECG 06/29/2017 22:52:12 Prolonged QT interval now present Electronically Signed On 07-08-17 06:12:35 CDT by Damien Reynolds
== END 2017-07-08 06:50 | disposition home or self-care (01) ==
LOC: ER 00:22
DX: R07.9 Chest pain, unspecified (principal)
CPT/HCPCS: 36415; 84484; 93005; 99284